=== PATIENT | female | born 1965 | race Caucasian/White ===

== ENCOUNTER 2021-02-22 18:23 | Inpatient (IN) | payer SELFPAY ==
[~2021-02-22] VITALS: Ht 165.1 cm; Wt 45.4 kg
[~2021-02-22 18:23] MED LIST: ALBU90OI INH; AZIT250 PO; CEPH500 PO; CIPR500 PO; CLIN300 PO; FLUC100 PO; FLUC150A PO; GLYB2.5 PO; HYDACE5 PO; IBUP800 PO; LEVSOD150 PO; LORA.5 PO; METCAR500 PO; METF500 PO; OXYACE5T PO; PENVK500 PO; PHENA100 PO; PROM25S PR; SULTRIDS PO; THYR60 PO; TRAM50 PO
[2021-02-22 19:02] LABS: BASOPHILS ABSOLUTE AUTO 0.05 K/mm3 (0.00-0.23); BASOPHILS PERCENT AUTO 1 % (0-2); EOSINOPHILS ABSOLUTE AUTO 0.03 K/mm3 (0.00-0.68); EOSINOPHILS PERCENT AUTO 0 % (0-6); Hematocrit 43.8 % (33.0-51.0); Hemoglobin 14.9 g/dL (11.5-16.0); IMMATURE GRAN PERCENT AUTO 1 % (0-1); LYMPHOCYTES ABSOLUTE AUTO 2.47 K/mm3 (0.84-5.20); LYMPHOCYTES PERCENT AUTO 24 % (21-46); MONOCYTES ABSOLUTE AUTO 0.62 K/mm3 (0.16-1.47); MONOCYTES PERCENT AUTO 6 % (4-13); Mean Corpuscular HGB 28.7 pg (26.0-34.0); Mean Corpuscular Volume 84 fL (80-100); Mean Platelet Volume 8.7 fL (9.1-12.4); NEUTROPHILS ABSOLUTE AUTO 6.96 K/mm3 (1.96-9.15); NEUTROPHILS PERCENT AUTO 68 % (41-73); Platelet Count 309 K/mm3 (150-400); RDW Coefficient Variation 12.6 % (11.7-14.2); RDW Standard Deviation 38.8 fL (35.1-46.3); Red Blood Cell Count 5.19 M/mm3 (3.80-5.20); White Blood Cell Count 10.23 K/mm3 (4.00-11.30)
[2021-02-22 19:19] LABS: Alanine Aminotransfer (ALT/SGP 18 U/L (12-78); Albumin, Blood 3.1 g/dL (3.4-5.0); Albumin/Globulin Ratio 0.9 (0.8-1.8); Alk Phos 115 U/L (50-136); Anion Gap 7 mmol/L (6-16); Aspartate Aminotrans (AST/SGOT 11 U/L (12-37); Bilirubin, Total 0.8 mg/dL (0.1-1.0); Blood Urea Nitrogen 12 mg/dL (8-24); Bun/Creatinine Ratio 14.2 (12.0-20.0); CO2, Blood 31 mmol/L (21-32); Calcium, Blood 8.5 mg/dL (8.5-10.1); Chloride, Blood 94 mmol/L (98-108); Creatinine, Blood 0.85 mg/dL (0.40-1.00); Globulin, Blood 3.4 g/dL (2.2-4.0); Glomerular Filtration Rate >60 (60-); Glucose, Blood 540 mg/dL (70-99); Potassium, Blood 3.8 mmol/L (3.5-5.5); Sodium, Blood 132 mmol/L (136-145); Total Protein, Blood 6.5 g/dL (6.4-8.2)
[2021-02-22 20:06] LABS: Free Thyroxine 0.63 ng/dL (0.70-1.60)
[2021-02-22 20:08] LABS: Thyroid Stimulating Hormone 77.4 uIU/mL (0.360-4.800)
[2021-02-22 21:16] LABS: Source, Urine Clean Catch
[2021-02-22 21:18] LABS: Bilirubin, Urine Neg (Neg); Blood, Urine Neg (Neg); Glucose Qualitative, Urine 4+ (Neg); Ketones, Urine Neg (Neg); Leukocyte Esterase, Urine Neg (Neg); Nitrite, Urine Neg (Neg); Protein, Urine 2+ (Neg); Urobilinogen, Urine NORM (Normal)
[2021-02-22 21:22] LABS: Appearance, Urine Clear (Clear); Color, Urine Yellow (P-Yellow)
[2021-02-22 21:28] LABS: Red Blood Cells, Urine 0-2 /hpf (0-2)
[2021-02-22 21:29] LABS: Bacteria Few /hpf; Squamous Epithelial Cells Few /hpf (Few)
--- NOTE | 2021-02-23 01:32 | NUR ---
ARRIVAL TO ICU 13 PT ARRIVED TO ICU 13 AT 0035 VIA ED BED. PT TRANSFERED OVER TO ICU BED VIA SLIDE SHEET. PT IS AWAKE AND DEMANDING FOOD, WATER, AND TO USE THE BATHROOM TO URINATE. WHEN TOLD ABOUT THE CATHETER PT AGGITATION INCREASED AND YELLED THAT SHE "HAS TO SIT ON A TOILET", BEDSIDE COMMODE AVAILABLE AND USED WITH TWO PERSON STANDBY. PT REFUSING TO HAVE ANY PROCEDURES OR MEDICATION AND REMOVED BP CUFF AND SPO2 UNTIL SHE IS TO HAVE FOOD AND WATER, ORDER FOR NPO IN PLACE UPON ARRIVAL. PT CALLING STAFF PROFANATIES FOR NOT PROVIDING THS THINGS. ORDERS PROVIDED TO CHANGE DIET TO REG. PT ATE HALF A SANDWICH, PUDDING, AND JELLO. PT ALLOWING EKG TO BE DONE, BP CUFF AND SPO2 TO BE PLACED. UA SENT. HR 70-80'S. SBP 100-110. SPO2 >95% ON RA. PT NOW SLEEPING. SEE ADMISSION ASSESSMENT FOR FULL ASSESSMENT.
[2021-02-23 01:34] LABS: U Amphetamine Screen DETECTED; U Barbituate Screen Not Detected; U Benzodiazapine Screen Not Detected; U Buprenorphine Screen Not Detected; U Cannabinoids Screen DETECTED; U Cocaine Screen Not Detected; U Methadone Screen Not Detected; U Methamphetamine Screen DETECTED; U Opiates Screen Not Detected; U Oxycodone Screen Not Detected; U Phencyclidine Screen Not Detected; U Propoxyphene Screen Not Detected
[2021-02-23 02:23] LABS: PCO2 Arterial 44.1 mmHg (35-45); PO2 Arterial 66.8 mmHg (80-100)
[2021-02-23 03:41] LABS: BASOPHILS ABSOLUTE AUTO 0.01 K/mm3 (0.00-0.23); BASOPHILS PERCENT AUTO 0 % (0-2); EOSINOPHILS ABSOLUTE AUTO 0.01 K/mm3 (0.00-0.68); EOSINOPHILS PERCENT AUTO 0 % (0-6); Hematocrit 36.4 % (33.0-51.0); Hemoglobin 12.4 g/dL (11.5-16.0); IMMATURE GRAN ABSOLUTE AUTO 0.05 K/mm3 (0.00-0.10); IMMATURE GRAN PERCENT AUTO 1 % (0-1); LYMPHOCYTES ABSOLUTE AUTO 1.26 K/mm3 (0.84-5.20); LYMPHOCYTES PERCENT AUTO 15 % (21-46); MONOCYTES PERCENT AUTO 2 % (4-13); Mean Corpuscular HGB Conc 34.1 g/dL (31.5-36.5); Mean Corpuscular Volume 85 fL (80-100); Mean Platelet Volume 8.7 fL (9.1-12.4); NEUTROPHILS ABSOLUTE AUTO 6.66 K/mm3 (1.96-9.15); NEUTROPHILS PERCENT AUTO 81 % (41-73); Platelet Count 259 K/mm3 (150-400); RDW Coefficient Variation 12.9 % (11.7-14.2); RDW Standard Deviation 39.7 fL (35.1-46.3); Red Blood Cell Count 4.27 M/mm3 (3.80-5.20); White Blood Cell Count 8.19 K/mm3 (4.00-11.30)
[2021-02-23 04:01] LABS: Alanine Aminotransfer (ALT/SGP 17 U/L (12-78); Albumin, Blood 2.4 g/dL (3.4-5.0); Albumin/Globulin Ratio 0.9 (0.8-1.8); Alk Phos 89 U/L (50-136); Anion Gap 5 mmol/L (6-16); Aspartate Aminotrans (AST/SGOT 8 U/L (12-37); Bilirubin, Total 0.7 mg/dL (0.1-1.0); Blood Urea Nitrogen 13 mg/dL (8-24); Bun/Creatinine Ratio 24.2 (12.0-20.0); CO2, Blood 27 mmol/L (21-32); Calcium, Blood 7.4 mg/dL (8.5-10.1); Chloride, Blood 103 mmol/L (98-108); Creatinine, Blood 0.54 mg/dL (0.40-1.00); Globulin, Blood 2.7 g/dL (2.2-4.0); Glomerular Filtration Rate >60 (60-); Glucose, Blood 448 mg/dL (70-99); Sodium, Blood 135 mmol/L (136-145); Total Protein, Blood 5.1 g/dL (6.4-8.2)
--- NOTE | 2021-02-23 05:59 | NUR ---
PT VERY GRUMPY AND GROUCHY; REFUSING TREATMENT FROM RN. STATES SHE JUST WANTS TO GO SMOKE AND LEAVE THIS PLACE. PT WAS ADVISED THAT WAS NOT A GOOD IDEA AND THAT SHE WAS HERE BECAUSE SHE HAS A NEW BRAIN TUMOR AND THAT HER THYROID LEVELS ARE VERY UNBALANCED. PT DIDN'T CARE AND TOLD ME TO "SHUT UP." THEN ASKED WHERE HER CLOTHES WERE. IV'S WERE REMOVED AND REENA WAS D/C'D. PT SIGNED AMA PAPERS AND WAS ESCORTED TO THE EXTERIOR OF THE BUILDING.
== END 2021-02-23 05:50 | disposition left against medical advice (07) | DRG 80 ==
LOC: ER 18:23 → ICUW 22:10
PROVIDERS: Emergency Medicine; ADMIT Internal Medicine
DX: E03.5 Myxedema coma (principal); G93.41 Metabolic encephalopathy; Z79.84 Long term (current) use of oral hypoglycemic drugs; E86.0 Dehydration; E11.65 Type 2 diabetes mellitus with hyperglycemia; G93.9 Disorder of brain, unspecified; E03.9 Hypothyroidism, unspecified; Z79.899 Other long term (current) drug therapy; Z88.6 Allergy status to analgesic agent
CPT/HCPCS: 36415; 36600; 51702; 70450; 71046; 80053; 81001; 82533; 82803; 82947; 83735; 84439; 84443; 85025; 93005; 93010; 96365-59; 96375-59; 96376-59; 99285-25; A9270; J1720; J1815; J1953; J7030